=== PATIENT | female | born 1990 | race American Indian/Alaskan Native ===

== ENCOUNTER 2017-01-21 09:34 | Emergency (ER) | payer SELFPAY ==
[2017-01-21 10:19] VITALS: BP 121/74
[2017-01-21] MEDS ORDERED: Tetracaine 0.5% 2 ML Bottle EYERT ONE (11:03)
[2017-01-21] MEDS ORDERED: Fluorescein 1 MG Ophth Strip EYERT ONE (11:03)
[2017-01-21] MEDS ORDERED: Proparacaine 0.5% Ophth Soln 15 ML Bottle EYERT ONE (11:07)
[2017-01-21] MEDS ORDERED: Gentamicin 0.3% Ophth Soln 5 ML Bottle EYERT ONE (11:32)
--- NOTE | 2017-01-21 18:01 | EDM.PDOC ---
Scribed by Mary Whitehead 01/21/17 [id number] for Matthew Dickey MD ED HPI EYE COMPLAINT - General Chief Complaint: Eye Problems Stated Complaint: EYE INFECTION [id number] Time Seen by Provider: 01/21/17 11:22 Source: Reports: Patient, RN, RN notes reviewed History Limitations: Reports: No limitations - History of Present Illness INITIAL COMMENTS - FREE TEXT/NARRATIVE: Patient complains of right irritation, watering and pain. Patient doesn't know of anything that got into the eye and denies injury. Last night she took her contacts out and went to bed as usual. She woke today with the right eye symptoms. Tetanus vaccine is less then 10 years. Symptom Onset Date: 01/21/17 Timing/Duration: Reports: Gradual onset Location: right eye Quality: Reports: Ache Severity: severe Improves with: Reports: None Worsens with: Reports: None - Related Data Allergies/ADRs: Allergies No Known Allergies Allergy (Verified 01/21/17 09:41) Home Meds: Ambulatory Orders Medication Instructions Recorded Confirmed . [No Known Home Meds] 01/21/17 01/21/17 Past Medical History HEENT History: Reports: Other (see below) Other HEENT History: patient wears contacts, right eye red and swollen at this time - Past Surgical History HEENT Surgical History: Reports: None Social & Family History - Family History Family Medical History: Noncontributory - Tobacco Use Smoking Status *Q: Current Some Day Smoker Years of Tobacco use: 4 Packs/Tins Daily: 0.3 Second Hand Smoke Exposure: Yes - Caffeine Use Caffeine Use: Reports: Soda - Alcohol Use Days Per Week of Alcohol Use: 0 - Recreational Drug Use Recreational Drug Use: No Drug Use in Last 12 Months: Yes 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 ED EXAM GENERAL W FULL EYE - Physical Exam Exam: See Below Exam Limited By: No limitations General Appearance: alert, WD/WN, no apparent distress Eye Exam: right eye: conjunctival injection (with tearing and matting or purulent discharge. No foreign body. Normal upper and lower lids. Fluoresein stain with uptake at 3mm shows corneal abrasion at 12 o'clock position. ), other (normal anterior chamber), bilateral eye: EOMI, PERRL Ears: normal external exam, normal canal, hearing grossly normal, normal TMs Nose: normal inspection, normal mucosa, no blood Throat/Mouth: Normal inspection, Normal lips, Normal teeth, Normal gums, Normal oropharynx, Normal voice, No airway compromise Head: atraumatic, normocephalic Neck: normal inspection, supple, non-tender, full range of motion Respiratory/Chest: no respiratory distress Neurological: alert, oriented, CN II-XII intact, normal cognition, normal gait, normal reflexes, no motor/sensory deficits Psychiatric: normal affect, normal mood Course - Vital Signs Last Recorded V/S: Last Vital Signs Temp 36.2 C 01/21/17 10:18 Pulse 64 01/21/17 10:18 Resp 16 01/21/17 10:18 BP 121/74 01/21/17 10:18 Pulse Ox 100 01/21/17 10:18 - Orders/Labs/Meds Meds: Medications Discontinued Medications Generic Name Dose Route Start Last Admin Trade Name Tim PRN Reason Stop Dose Admin Fluorescein Sodium 1 mg 01/21/17 11:03 01/21/17 11:15 Ful-Phyllis EYERT 01/21/17 11:04 1 mg ONETIME ONE Administration Gentamicin Sulfate 1 ml 01/21/17 11:32 01/21/17 11:39 Garamycin 0.3% Ophth Soln EYERT 01/21/17 11:33 1 drop ONETIME ONE Administration Proparacaine HCl 1 ml 01/21/17 11:07 Proparacaine 0.5% Ophth Soln EYERT 01/21/17 11:08 ONETIME ONE Tetracaine 1 ml 01/21/17 11:03 01/21/17 11:15 Pontocaine 0.5% Ophth Drops EYERT 01/21/17 11:04 1 drop ASDIRECTED ONE Administration Departure - Departure Time of Disposition: 11:31 Disposition: Home, Self-Care 01 Condition: good Clinical Impression: Corneal abrasion, right Qualifiers: Encounter type: initial encounter Qualified Code(s): S05.01XA - Injury of conjunctiva and corneal abrasion without foreign body, right eye, initial encounter Instructions: Corneal Abrasion, [id number] Referrals: PCP,None [Primary Care Provider] - Forms: ED Department Discharge Additional Instructions: Gentamicin .03% solution one drop into right eye 4 times a day for 5 days. Wear pressure pad on right eye as needed for comfort for 305 days. Follow up with your eye doctor on Monday or Monday for recheck. Do not wear contact lens. Do not touch or rub the eye. I have read and agree with the documentation that has been completed regarding this visit. By signing this record, I attest that the documentation was completed in my physical presence and is an accurate record of the encounter.
== END 2017-01-21 11:45 | disposition home or self-care (01) ==
LOC: DL.ED 09:34
DX: S05.01XA Injury of conjunctiva and corneal abrasion without foreign body, right eye, initial encounter (principal)
CPT/HCPCS: 99283; A9270

== ENCOUNTER 2017-04-20 10:20 | Emergency (ER) | payer SELFPAY ==
--- NOTE | 2017-04-20 10:22 | EDM.PDOC ---
ED HPI GENERAL MEDICAL PROBLEM - General Chief Complaint: Laceration Stated Complaint: CUT TO RT INDEX FINGER Time Seen by Provider: 04/20/17 10:22 Source of Information: Reports: Patient, RN, RN Notes Reviewed History Limitations: Reports: No Limitations - History of Present Illness INITIAL COMMENTS - FREE TEXT/NARRATIVE: Cut finger on a kitchen knife [employer]. Denies any other injury. Tetanus is up to date per pt. Onset: Today Location: Reports: Upper Extremity, Left Quality: Reports: Ache Severity: Mild Improves with: Reports: None Left Hand Pain Score (Numeric/FACES): 10 - Related Data Allergies Allergy/AdvReac Type Severity Reaction Status Date / Time No Known Allergies Allergy Verified 04/20/17 10:38 Home Meds: Home Meds . [No Known Home Meds] 01/21/17 [History] Past Medical History HEENT History: Reports: Other (See Below) Other HEENT History: patient wears contacts, right eye red and swollen at this time - Past Surgical History HEENT Surgical History: Reports: None Social & Family History - Family History Family Medical History: Noncontributory - Tobacco Use Smoking Status *Q: Current Some Day Smoker Years of Tobacco use: 4 Packs/Tins Daily: 0.3 Second Hand Smoke Exposure: Yes - Caffeine Use Caffeine Use: Reports: Soda - Alcohol Use Days Per Week of Alcohol Use: 0 - Recreational Drug Use Recreational Drug Use: No Drug Use in Last 12 Months: Yes 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 ED EXAM, GENERAL - Physical Exam Exam: See Below Exam Limited By: No Limitations General Appearance: Alert, WD/WN, No Apparent Distress Head: Atraumatic, Normocephalic Neck: Normal Inspection Respiratory/Chest: No Respiratory Distress Extremities: Normal Range of Motion, Normal Capillary Refill, Other (2.0cm laceration to depth of subcut. tissue at left distal index finger) Neurological: Alert, Oriented, No Motor/Sensory Deficits Psychiatric: Normal Affect, Normal Mood Skin Exam: Warm, Dry ED TRAUMA EXTREMITY PROCEDURES - Laceration/Wound Repair Left Distal Finger Lac/wound length in cm: 2 (left distal index finger) Appearance: Subcutaneous, Irregular, Clean Distal NVT: Neuro & Vascular Intact, No Tendon Injury Anesthetic Type: Local Local Anesthesia - Lidocaine (Xylocaine): 1% Plain Local Anesthetic Volume: 5cc Skin Prep: Chlorhexidine (Hibiciens), Saline Saline irrigation (cc's): 1,000 Exploration/Debridement/Repair: Wound Explored, in a Bloodless Field, Explored to Base, Minimal Debridement Closed with: Sutures Suture Size: 4-0 # of Sutures: 6 Suture Type: Nylon, Interrupted Tetanus Status Addressed: Yes Complications: No Course - Vital Signs Last Recorded V/S: Last Vital Signs Temp 36.0 C 04/20/17 10:33 Pulse 74 04/20/17 10:33 Resp 18 04/20/17 10:33 BP 119/96 H 04/20/17 10:33 Pulse Ox 98 04/20/17 10:33 Departure - Departure Time of Disposition: 11:41 Disposition: Home, Self-Care 01 Condition: good Clinical Impression: Laceration of left index finger Qualifiers: Encounter type: initial encounter Damage to nail status: without damage Foreign body presence: without foreign body Qualified Code(s): S61.211A - Laceration without foreign body of left index finger without damage to nail, initial encounter - Discharge Information Instructions: Laceration Care, Adult, [id number], Stitches, [place], or Adhesive Wound Closure, [id number] Forms: ED Department Discharge Additional Instructions: Keep sutures clean and dry. Follow up in clinic in 7 to 10 days for suture removal. Follow up in clinic or return to ER if any signs of infection develop.
[2017-04-20 10:38] VITALS: BP 119/96
== END 2017-04-20 12:02 | disposition home or self-care (01) ==
LOC: DL.ED 10:20
DX: S61.211A Laceration without foreign body of left index finger without damage to nail, initial encounter (principal); F17.210 Nicotine dependence, cigarettes, uncomplicated; W26.0XXA Contact with knife, initial encounter
CPT/HCPCS: 12001; 99282